=== PATIENT | female | born 1995 | race African-American/Black ===

== ENCOUNTER 2019-04-28 16:21 | Inpatient (IN) | payer OTHER ==
[~2019-04-28] VITALS: Ht 177.8 cm; Wt 79.6 kg
--- OUTSIDE RECORDS SUMMARY | 2019-04-28 16:23 | XMS REPORT ---
[facility] [place] Address Unknown Phone Unavailable Care Team Providers Care Senior Sql Developer Name Role Phone Unavailable Unavailable Payers Payer Name Policy Type Policy Number Effective Date Expiration Date Problems This patient has no known problems. Allergies, Adverse Reactions, Alerts Allergy Name Allergy Type Status Severity Reaction(s) Onset Date Inactive Date Treating Clinician Comments No Known Allergies DA Active U 2015-08-07 00:00:00 Medications This patient has no known medications. Results Test Description Test Time Test Comments Text Results Atomic Results Result Comments - XR CHEST 1 V 2019-04-28 11:46:00 Name: AYESHA RUSH [facility] : 1995 Age/S:23 /F [address] [facility] Unit#:[id number] Loc: [place] [address] Phys: Molly Rivera MD Dis Date: PHONE #: [phone] Status: REG ER FAX #: [phone] Exam Date: 04/28/2019 Reason: forceful vomiting EXAMS: CPT CODE: [id number] XR CHEST 1 V 46693 HISTORY: forceful vomiting TECHNIQUE: AP chest x-ray COMPARISON: 01/17/12 FINDINGS: No airspace consolidation or pleural effusion. Normal heart size. Mediastinal silhouette is unremarkable. Visualized osseous structures are grossly intact. IMPRESSION: No radiographic evidence of acute cardiopulmonary process. at 1146 Reported and signed by: Cherie Ledezma D.O. CC: Jamin Farias DO; Molly Rivera MD Technologist: Jannette Hester Trnscrpt Data: 04/28/2019 (4003) [id number] Orig Print D/T: S: 04/28/2019 (2348) PAGE 1 Signed Report COMPREHENSIVE METABOLIC PANEL 2019-04-28 10:54:00 SODIUM (test code=NA) 141 mmol/L 136-145 POTASSIUM (test code=K) 4.0 mmol/L 3.5-5.1 CHLORIDE (test code=CL) 105 mmol/L 101-109 CARBON DIOXIDE (test code=CO2) 28.3 mmol/L 21-32 ANION GAP (test code=GAP) 12 mmol/L 10-20 GLUCOSE (test code=GLU) 103 mg/dL 74-106 BLOOD UREA NITROGEN (test code=BUN) 7 mg/dL 3-21 CREATININE (test code=CREAT) 0.84 mg/dL 0.55-1.3 BUN/CREATININE RATIO (test code=BUN/CREA) 8.3 10-20 TOTAL PROTEIN (test code=PROT) 8.0 g/dL 6.5-8.4 ALBUMIN (test code=ALB) 4.2 g/dL 3.4-4.8 GLOBULIN (test code=GLOB) 3.8 G/DL 1-10 ALBUMIN/GLOBULIN RATIO (test code=A/G) 1.11 RATIO 0.75-1.50 CALCIUM (test code=CA) 8.5 mg/dL 8.4-10.2 BILIRUBIN TOTAL (test code=BILT) 0.20 mg/dL 0.0-1.0 SGOT/AST (test code=AST) 18 U/L 6-32 SGPT/ALT (test code=ALT) 21 U/L 12-78 Note: Change in REFERENCE RANGE due to new reagent method. ALKALINE PHOSPHATASE TOTAL (test code=ALKP) 65 U/L 38-126 [id number] 10:54:00* Test Item Value Reference Range Comments LIPASE (test code=LIP) 147 U/L 128-270 [id number] 10:54:00* Test Item Value Reference Range Comments MAGNESIUM (test code=MAG) 1.6 mg/dL 1.6-2.3 URINALYSIS [id number] 10:53:00* Test Item Value Reference Range Comments UA COLOR (test code=COLU) YELLOW YELLOW UA APPEARANCE (test code=APPU) HAZY CLEAR UA GLUCOSE DIPSTICK (test code=DGLUU) norm mg/dL NEGATIVE UA BILIRUBIN DIPSTICK (test code=BILU) NEGATIVE mg/dL NEGATIVE UA KETONE DIPSTICK (test code=KETU) neg mg/dL NEGATIVE UA SPECIFIC GRAVITY (test code=SGU) 1.010 1.001-1.035 UA BLOOD DIPSTICK (test code=CLINTON) neg Blake/uL NEGATIVE UA PH DIPSTICK (test code=RONDA) 7.0 5.0-8.0 UA PROTEIN DIPSTICK (test code=PROU) neg mg/dL Neg-15 UA UROBILINIOGEN DIPSTICK (test code=URO) norm mg/dL 0.0-0.2 UA NITRITE DIPSTICK (test code=MAR) NEGATIVE NEGATIVE UA LEUKOCYTE ESTERASE DIPSTICK (test code=LEUU) neg uL NEGATIVE UA WBC (test code=WBCU) 0-5 per HPF 0-5 UA RBC (test code=RBCU) 0-2 per HPF 0-5 UA EPITHELIAL CELLS (test code=EPIU) MODERATE per HPF Few UA BACTERIA (test code=BACU) FEW per HPF NONE UA MUCUS (test code=MUCU) FEW per LPF NONE-FEW Urine Source? Clean CatchUR HCG [id number] 10:53:00* Test Item Value Reference Range Comments UR HCG QUAL (test code=HCGQLU) NEGATIVE This HCGQL test is NOT applicable for MALE patients.Check with nurse about probable order error.If Tumor Marker Test needed, nurse should order test "HCGTU"(Test #550.17689) Urine Source? Clean CatchCOMPREHENSIVE METABOLIC [id number] 10:53:00* Test Item Value Reference Range Comments SODIUM (test code=NA) 141 mmol/L 136-145 POTASSIUM (test code=K) 4.0 mmol/L 3.5-5.1 CHLORIDE (test code=CL) 105 mmol/L 101-109 CARBON DIOXIDE (test code=CO2) 28.3 mmol/L 21-32 ANION GAP (test code=GAP) 12 mmol/L 10-20 GLUCOSE (test code=GLU) 103 mg/dL 74-106 BLOOD UREA NITROGEN (test code=BUN) 7 mg/dL 3-21 CREATININE (test code=CREAT) 0.84 mg/dL 0.55-1.3 BUN/CREATININE RATIO (test code=BUN/CREA) 8.3 10-20 TOTAL PROTEIN (test code=PROT) gram/dL 6.4-8.2 ALBUMIN (test code=ALB) g/dL 3.4-5.0 GLOBULIN (test code=GLOB) g/dL 2.7-4.2 ALBUMIN/GLOBULIN RATIO (test code=A/G) 0.75-1.50 CALCIUM (test code=CA) 8.5 mg/dL 8.4-10.2 BILIRUBIN TOTAL (test code=BILT) mg/dL 0.2-1.2 SGOT/AST (test code=AST) IUnit/L 15-37 SGPT/ALT (test code=ALT) U/L 10-69 ALKALINE PHOSPHATASE TOTAL (test code=ALKP) IUnit/L 45-117 [id number] 10:53:00* Test Item Value Reference Range Comments LIPASE (test code=LIP) Unit/L 144-286 [id number] 10:53:00* Test Item Value Reference Range Comments MAGNESIUM (test code=MAG) mg/dL 1.8-2.4 URINALYSIS [id number] 10:50:00* Test Item Value Reference Range Comments UA COLOR (test code=COLU) YELLOW YELLOW UA APPEARANCE (test code=APPU) CLEAR UA GLUCOSE DIPSTICK (test code=DGLUU) norm mg/dL NEGATIVE UA BILIRUBIN DIPSTICK (test code=BILU) NEGATIVE mg/dL NEGATIVE UA KETONE DIPSTICK (test code=KETU) neg mg/dL NEGATIVE UA SPECIFIC GRAVITY (test code=SGU) 1.010 1.001-1.035 UA BLOOD DIPSTICK (test code=CLINTON) neg Blake/uL NEGATIVE UA PH DIPSTICK (test code=RONDA) 7.0 5.0-8.0 UA PROTEIN DIPSTICK (test code=PROU) neg mg/dL Neg-15 UA UROBILINIOGEN DIPSTICK (test code=URO) norm mg/dL 0.0-0.2 UA NITRITE DIPSTICK (test code=MAR) NEGATIVE NEGATIVE UA LEUKOCYTE ESTERASE DIPSTICK (test code=LEUU) neg uL NEGATIVE UA WBC (test code=WBCU) per HPF 0-5 UA RBC (test code=RBCU) per HPF 0-5 UA EPITHELIAL CELLS (test code=EPIU) per HPF Few UA BACTERIA (test code=BACU) per HPF NONE Urine Source? Clean CatchUR HCG [id number] 10:50:00* Test Item Value Reference Range Comments UR HCG QUAL (test code=HCGQLU) NEGATIVE This HCGQL test is NOT applicable for MALE patients.Check with nurse about probable order error.If Tumor Marker Test needed, nurse should order test "HCGTU"(Test #550.53130) Urine Source? Clean CatchURINALYSIS [id number] 10:42:00* Test Item Value Reference Range Comments UA COLOR (test code=COLU) YELLOW YELLOW UA APPEARANCE (test code=APPU) CLEAR UA GLUCOSE DIPSTICK (test code=DGLUU) norm mg/dL NEGATIVE UA BILIRUBIN DIPSTICK (test code=BILU) NEGATIVE mg/dL NEGATIVE UA KETONE DIPSTICK (test code=KETU) neg mg/dL NEGATIVE UA SPECIFIC GRAVITY (test code=SGU) 1.010 1.001-1.035 UA BLOOD DIPSTICK (test code=CLINTON) neg Blake/uL NEGATIVE UA PH DIPSTICK (test code=RONDA) 7.0 5.0-8.0 UA PROTEIN DIPSTICK (test code=PROU) neg mg/dL Neg-15 UA UROBILINIOGEN DIPSTICK (test code=URO) norm mg/dL 0.0-0.2 UA NITRITE DIPSTICK (test code=MAR) NEGATIVE NEGATIVE UA LEUKOCYTE ESTERASE DIPSTICK (test code=LEUU) neg uL NEGATIVE UA WBC (test code=WBCU) per HPF 0-5 UA RBC (test code=RBCU) per HPF 0-5 UA EPITHELIAL CELLS (test code=EPIU) per HPF Few UA BACTERIA (test code=BACU) per HPF NONE Urine Source? Clean CatchUR HCG [id number] 10:42:00* Test Item Value Reference Range Comments UR HCG QUAL (test code=HCGQLU) Urine Source? Clean CatchCBC W/AUTO [id number] 10:41:00* Test Item Value Reference Range Comments WHITE BLOOD CELL (test code=WBC) 6.7 K/mm3 4.5-12.5 RED BLOOD CELL (test code=RBC) 4.35 mill/mm3 3.7-5.2 HEMOGLOBIN (test code=HGB) 13.0 gram/dL 11.5-15.5 HEMATOCRIT (test code=HCT) 41.1 % 36.0-46.0 MEAN CELL VOLUME (test code=MCV) 94.5 fL 80-98 MEAN CELL HGB (test code=MCH) 29.9 picogram 27.0-33.0 MEAN CELL HGB CONCETRATION (test code=MCHC) 31.6 gram/dL 33.0-36.0 RED CELL DISTRIBUTION WIDTH (test code=RDW) 11.8 % 11.6-16.2 RED CELL DISTRIBUTION WIDTH SD (test code=RDW-SD) 41.9 fL 37.0-51.0 PLATELET COUNT (test code=PLT) 232 K/mm3 150-450 MEAN PLATELET VOLUME (test code=MPV) 9.6 fL 6.7-11.0 NEUTROPHIL % (test code=NT%) 70.6 % 39.0-69.0 LYMPHOCYTE % (test code=LY%) 23.0 % 25.0-55.0 MONOCYTE % (test code=MO%) 5.5 % 0.0-10.0 EOSINOPHIL % (test code=EO%) 0.3 % 0.0-5.0 BASOPHIL % (test code=BA%) 0.3 % 0.0-1.0 NEUTROPHIL # (test code=NT#) 4.73 K/mm3 1.8-7.7 LYMPHOCYTE # (test code=LY#) 1.54 K/mm3 1.0-5.0 MONOCYTE # (test code=MO#) 0.37 K/mm3 0-0.8 EOSINOPHIL # (test code=EO#) 0.02 K/mm3 0.0-0.5 BASOPHIL # (test code=BA#) 0.02 K/mm3 0.0-0.2 MANUAL DIFF REQUIRED (test code=MDIFF) NO - CT ABD PELVIS W/O [id number] 15:04:00 Name: AYESHA RUSH [facility] : 1995 Age/S: 22 / F [address] [place] [address] Unit #: [id number] Loc: [place] [address] Phys: Arvind Blackburn MD Acct: [id number] Dis Date: Status: REG ER PHONE #: [phone] Exam Date: 09/22/2018 1432 FAX #: [phone] Reason: epigastric pain EXAMS: CPT CODE: [id number] CT ABD PELVIS W/O CONT [id number] REASON FOR EXAM: epigastric pain EXAM ORDER DATE: 09/22/2018 1:03 PM Ordering M.D.: Arvind Blackburn MD PROCEDURE: - CT ABD PELVIS W/O CONT axial CT images were acquired through the abdomen/pelvis at 5 mm intervals. Sagittal and coronal reformatted images were generated. Automated exposure control was utilized for this reduction. COMPARISON: Abdominal CT March 12, 2018 FINDINGS: The absence of IV contrast limits sensitivity of this exam for the detection of soft tissue pathology Visualized thorax: Normal Hepatobiliary: Normal Pancreas: Normal Spleen: Normal GI: There is fatty metaplasia of the submucosal layer of the entire colon. This may represent sequela from a prior inflammatory process. The appendix, small bowel, and stomach are within normal limits. Adrenal glands: Normal : Normal Normal caliber of the aorta and IVC. No calcified atherosclerosis Peritoneum and retroperitoneum: No free fluid or free air. There are a few subcentimeter mesenteric lymph nodes which are nonspecific and may be sequela from a prior infectious or inflammatory process. Musculoskeletal and abdominal wall: Normal IMPRESSION: PAGE 1 Signed Report (CONTINUED) [facility] 1995 Age/S: 22 / F [address] [place] [address] Unit #: [id number] Loc: [place] [address] Phys: Arvind Blackburn MD Acct: [id number] Dis Date: Status: REG ER PHONE #: [phone] Exam Date: 09/22/2018 1432 FAX #: [phone] Reason: epigastric pain EXAMS: CPT CODE: [id number] CT ABD PELVIS W/O CONT 32626 <Continued> No acute intra-abdominal process. Sequela of a prior inflammatory process involving the colon. at 1504 Reported and signed by: Fernando English MD CC: Arvind Blackburn MD Technologist:Ping Arora CTDI: DLP: Trnscb Date/Time: 09/22/2018 (5058) [id number] Orig Print D/T: S: 09/22/2018 (2830) CTDI: DLP: PAGE 2 Signed Report URINALYSIS [id number] 13:54:00* Test Item Value Reference Range Comments UA COLOR (test code=COLU) YELLOW YELLOW UA APPEARANCE (test code=APPU) HAZY CLEAR UA GLUCOSE DIPSTICK (test code=DGLUU) NORMAL mg/dL NEGATIVE UA BILIRUBIN DIPSTICK (test code=BILU) NEGATIVE mg/dL NEGATIVE UA KETONE DIPSTICK (test code=KETU) 150 (3+) mg/dL NEGATIVE UA SPECIFIC GRAVITY (test code=SGU) 1.015 1.001-1.035 UA BLOOD DIPSTICK (test code=CLINTON) 10 (Trace) Blake/uL NEGATIVE UA PH DIPSTICK (test code=RONDA) 6.0 5.0-8.0 UA PROTEIN DIPSTICK (test code=PROU) 30 (1+) mg/dL Neg-15 UA UROBILINIOGEN DIPSTICK (test code=URO) norm mg/dL 0.0-0.2 UA NITRITE DIPSTICK (test code=MAR) NEGATIVE NEGATIVE UA LEUKOCYTE ESTERASE DIPSTICK (test code=LEUU) 25 (Trace) uL NEGATIVE UA WBC (test code=WBCU) 0-5 per HPF 0-5 IN SOME URINARY TRACT INFECTIONS THERE MAY NOT BE ENOUGHWBCs IN THE URINE TO TRIGGER AN AUTOMATIC (REFLEX) URINECULTURE. A SEPERATE ORDER FOR URINE CULTURE IS RECOMMENDEDIF THERE IS STRONG SUPPORT FOR A URINARY TRACT INFECTIONCLINICALLY. UA RBC (test code=RBCU) 0-2 per HPF 0-5 UA EPITHELIAL CELLS (test code=EPIU) Many (>10/hpf) per HPF Few UA BACTERIA (test code=BACU) FEW per HPF NONE UA MUCUS (test code=MUCU) FEW per LPF NONE-FEW UA AMORPHOUS SEDIMENT (test code=AMORU) FEW per LPF NONE Urine Source? Clean CatchUR HCG [id number] 13:54:00* Test Item Value Reference Range Comments UR HCG QUAL (test code=HCGQLU) Urine Source? Clean CatchURINALYSIS [id number] 13:54:00* Test Item Value Reference Range Comments UA COLOR (test code=COLU) YELLOW YELLOW UA APPEARANCE (test code=APPU) HAZY CLEAR UA GLUCOSE DIPSTICK (test code=DGLUU) NORMAL mg/dL NEGATIVE UA BILIRUBIN DIPSTICK (test code=BILU) NEGATIVE mg/dL NEGATIVE UA KETONE DIPSTICK (test code=KETU) 150 (3+) mg/dL NEGATIVE UA SPECIFIC GRAVITY (test code=SGU) 1.015 1.001-1.035 UA BLOOD DIPSTICK (test code=CLINTON) 10 (Trace) Blake/uL NEGATIVE UA PH DIPSTICK (test code=RONDA) 6.0 5.0-8.0 UA PROTEIN DIPSTICK (test code=PROU) 30 (1+) mg/dL Neg-15 UA UROBILINIOGEN DIPSTICK (test code=URO) norm mg/dL 0.0-0.2 UA NITRITE DIPSTICK (test code=MAR) NEGATIVE NEGATIVE UA LEUKOCYTE ESTERASE DIPSTICK (test code=LEUU) 25 (Trace) uL NEGATIVE UA WBC (test code=WBCU) 0-5 per HPF 0-5 IN SOME URINARY TRACT INFECTIONS THERE MAY NOT BE ENOUGHWBCs IN THE URINE TO TRIGGER AN AUTOMATIC (REFLEX) URINECULTURE. A SEPERATE ORDER FOR URINE CULTURE IS RECOMMENDEDIF THERE IS STRONG SUPPORT FOR A URINARY TRACT INFECTIONCLINICALLY. UA RBC (test code=RBCU) 0-2 per HPF 0-5 UA EPITHELIAL CELLS (test code=EPIU) Many (>10/hpf) per HPF Few UA BACTERIA (test code=BACU) FEW per HPF NONE UA MUCUS (test code=MUCU) FEW per LPF NONE-FEW UA AMORPHOUS SEDIMENT (test code=AMORU) FEW per LPF NONE Urine Source? Clean CatchUR HCG [id number] 13:54:00* Test Item Value Reference Range Comments UR HCG QUAL (test code=HCGQLU) NEGATIVE This HCGQL test is NOT applicable for MALE patients.Check with nurse about probable order error.If Tumor Marker Test needed, nurse should order test "HCGTU"(Test #550.64961) Urine Source? Clean CatchURINALYSIS [id number] 13:42:00* Test Item Value Reference Range Comments UA COLOR (test code=COLU) YELLOW YELLOW UA APPEARANCE (test code=APPU) HAZY CLEAR UA GLUCOSE DIPSTICK (test code=DGLUU) NORMAL mg/dL NEGATIVE UA BILIRUBIN DIPSTICK (test code=BILU) NEGATIVE mg/dL NEGATIVE UA KETONE DIPSTICK (test code=KETU) 150 (3+) mg/dL NEGATIVE UA SPECIFIC GRAVITY (test code=SGU) 1.015 1.001-1.035 UA BLOOD DIPSTICK (test code=CLINTON) 10 (Trace) Blake/uL NEGATIVE UA PH DIPSTICK (test code=RONDA) 6.0 5.0-8.0 UA PROTEIN DIPSTICK (test code=PROU) 30 (1+) mg/dL Neg-15 UA UROBILINIOGEN DIPSTICK (test code=URO) norm mg/dL 0.0-0.2 UA NITRITE DIPSTICK (test code=MAR) NEGATIVE NEGATIVE UA LEUKOCYTE ESTERASE DIPSTICK (test code=LEUU) 25 (Trace) uL NEGATIVE UA WBC (test code=WBCU) per HPF 0-5 Urine Source? Clean CatchUR HCG [id number] 13:42:00* Test Item Value Reference Range Comments UR HCG QUAL (test code=HCGQLU) Urine Source? Clean [id number] 12:59:00* Test Item Value Reference Range Comments LIPASE (test code=LIP) 138 U/L 128-270 COMPREHENSIVE METABOLIC [id number] 11:29:00* Test Item Value Reference Range Comments SODIUM (test code=NA) 141 mmol/L 135-148 POTASSIUM (test code=K) 3.4 mmol/L 3.5-5.1 CHLORIDE (test code=CL) 104 mmol/L 101-109 CARBON DIOXIDE (test code=CO2) 24.5 mmol/L 21-32 ANION GAP (test code=GAP) 16 mmol/L 10-20 GLUCOSE (test code=GLU) 133 mg/dL 74-106 BLOOD UREA NITROGEN (test code=BUN) 7 mg/dL 3-21 CREATININE (test code=CREAT) 0.92 mg/dL 0.55-1.3 BUN/CREATININE RATIO (test code=BUN/CREA) 7.6 10-20 TOTAL PROTEIN (test code=PROT) 7.8 g/dL 6.5-8.4 ALBUMIN (test code=ALB) 4.2 g/dL 3.4-4.8 GLOBULIN (test code=GLOB) 3.6 G/DL 1-10 ALBUMIN/GLOBULIN RATIO (test code=A/G) 1.2 RATIO 0.75-1.50 CALCIUM (test code=CA) 9.0 mg/dL 8.4-10.2 BILIRUBIN TOTAL (test code=BILT) 0.30 mg/dL 0.0-1.0 SGOT/AST (test code=AST) 21 U/L 6-32 SGPT/ALT (test code=ALT) 25 U/L 12-78 Note: Change in REFERENCE RANGE due to new reagent method. ALKALINE PHOSPHATASE TOTAL (test code=ALKP) 63 U/L 38-126 CBC W/AUTO [id number] 11:10:00* Test Item Value Reference Range Comments WHITE BLOOD CELL (test code=WBC) 10.0 K/mm3 4.5-12.5 RED BLOOD CELL (test code=RBC) 4.19 mill/mm3 3.7-5.2 HEMOGLOBIN (test code=HGB) 13.1 gram/dL 11.5-15.5 HEMATOCRIT (test code=HCT) 38.5 % 36.0-46.0 MEAN CELL VOLUME (test code=MCV) 91.9 fL 80-98 MEAN CELL HGB (test code=MCH) 31.3 picogram 27.0-33.0 MEAN CELL HGB CONCETRATION (test code=MCHC) 34.0 gram/dL 33.0-36.0 RED CELL DISTRIBUTION WIDTH (test code=RDW) 12.2 % 11.6-16.2 RED CELL DISTRIBUTION WIDTH SD (test code=RDW-SD) 40.2 fL 39.1-52.0 PLATELET COUNT (test code=PLT) 211 K/mm3 150-450 MEAN PLATELET VOLUME (test code=MPV) 10.2 fL 6.7-11.0 NEUTROPHIL % (test code=NT%) 78.1 % 39.0-69.0 LYMPHOCYTE % (test code=LY%) 16.2 % 25.0-55.0 MONOCYTE % (test code=MO%) 5.5 % 0.0-10.0 EOSINOPHIL % (test code=EO%) 0.0 % 0.0-5.0 BASOPHIL % (test code=BA%) 0.2 % 0.0-1.0 NEUTROPHIL # (test code=NT#) 7.82 K/mm3 1.8-7.7 LYMPHOCYTE # (test code=LY#) 1.62 K/mm3 1.0-5.0 MONOCYTE # (test code=MO#) 0.55 K/mm3 0-0.8 EOSINOPHIL # (test code=EO#) 0.00 K/mm3 0.0-0.5 BASOPHIL # (test code=BA#) 0.02 K/mm3 0.0-0.2 MANUAL DIFF REQUIRED (test code=MDIFF) NO
[2019-04-28] MEDS ORDERED: SODIUM CHLORIDE 0.9% 1000ML 1,000 ML IV STA ×2 (16:53→18:42)
--- NOTE | 2019-04-28 17:10 | NUR ---
RADIOLOGY INFORMED TO CALL OUT STAVE CUTTER FOR GALLBLADDER ULTRASOUND.
[2019-04-28] MEDS ORDERED: FAMOTIDINE 20 MG/2 ML VIAL IV ONE (17:30)
[2019-04-28] MEDS ORDERED: MORPHINE SULFATE 2 MG/ML SYR 1ML IV ONE (17:30)
[2019-04-28] MEDS ORDERED: ONDANSETRON HCL INJ 2MG/ML 2ML 2 MG/ML VIAL IV ONE (17:30)
[2019-04-28 17:34] LABS: BASOPHILS % 0.2 % (0.0-1.0); HEMATOCRIT 34.8 % (34.2-44.1); HEMOGLOBIN 11.8 g/dL (12.0-16.0); LYMPHOCYTES # (AUTO) 0.8 (1.0-3.2); LYMPHOCYTES % 8.6 % (18.0-39.1); MEAN CORPUSCULAR HEMOGLOBIN 30.8 pg (28-32); MEAN CORPUSCULAR HGB CONC 33.9 g/dL (31-35); MEAN CORPUSCULAR VOLUME 90.9 fL (81-99); MONOCYTES # (AUTO) 0.2 (0.2-0.8); MONOCYTES % 2.4 % (4.4-11.3); NEUTROPHILS # (AUTO) 8.3 (2.1-6.9); NEUTROPHILS % 88.5 % (38.7-80.0); PLATELET COUNT 186 x10e3/uL (140-360); RED BLOOD COUNT 3.83 x10e6/uL (3.6-5.1); RED CELL DISTRIBUTION WIDTH 11.9 % (11.7-14.4)
[2019-04-28 17:52] LABS: ALANINE AMINOTRANSFERASE 14 IU/L (0-55); ALBUMIN 4.2 g/dL (3.5-5.0); ALBUMIN/GLOBULIN RATIO 1.3 (0.8-2.0); ALKALINE PHOSPHATASE 60 IU/L (40-150); AMYLASE 63 U/L (25-125); ANION GAP 16.8 mmol/L (8-16); BLOOD UREA NITROGEN 9 mg/dL (7-26); BUN/CREATININE RATIO 11 (6-25); CALCIUM 9.5 mg/dL (8.4-10.2); CARBON DIOXIDE 20 mmol/L (22-29); CHLORIDE 108 mmol/L (98-107); EST GLOMERULAR FILTRATION RATE > 60 ML/MIN (60-); GLUCOSE 113 mg/dL (74-118); LIPASE 12 U/L (8-78); POTASSIUM 3.8 mmol/L (3.5-5.1); SODIUM 141 mmol/L (136-145)
[2019-04-28 17:58] LABS: HCG,QUANTITATIVE < 1.20 mIU/mL (0-10)
[2019-04-28 17:59] LABS: BILIRUBIN,URINE NEGATIVE (NEGATIVE); CLARITY,URINE CLEAR (CLEAR); COLOR,URINE YELLOW (YELLOW); LEUKOCYTE ESTERASE ,URINE NEGATIVE (NEGATIVE); NITRITE,URINE NEGATIVE (NEGATIVE); PROTEIN,URINE DIPSTICK 2+ (NEGATIVE); URINE UROBILINOGEN 0.2 mg/dL (0.2 - 1)
[2019-04-28 18:00] LABS: KETONES,URINE 3+ (NEGATIVE)
[2019-04-28] MEDS ORDERED: IOPAMIDOL 370 MG/ML 200 ML INFUS..BTL INJ ONE (18:20)
[2019-04-28] MEDS ORDERED: SODIUM CHLORIDE 0.9% 50ML 50 ML ONE (18:20)
[2019-04-28 18:42] LABS: BACTERIA,URINE FEW /HPF; MUCUS,URINE MODERATE (RARE); RBC,URINE 0-5 /HPF (0-5)
[2019-04-28 18:43] LABS: EPITHELIAL CELLS,URINE MODERATE /LPF
--- NOTE | 2019-04-28 18:45 | Diagnostic Imaging Report ---
RIGHT UPPER QUADRANT ULTRASOUND TECHNIQUE: Ultrasound evaluation of the right upper quadrant abdomen. Color Doppler evaluation was utilized to supplement the evaluation. HISTORY: Abdominal pain COMPARISON: None available. DISCUSSION: LIVER: No focal lesion identified. The liver measures 14 cm in length in the right mid-clavicular line. BILIARY: Mild sludge. No gallbladder stone, wall thickening, or pericholecystic fluid. The sonographic Vargas's sign is reported as negative, but reportedly the patient was given pain medicine prior to the exam which makes the sonographic sign equivocal. Common bile duct measures 0.3 cm. RIGHT KIDNEY: 10 cm in length. No hydronephrosis, solid mass, or cystic lesion identified. Incidentally, a 2 cm simple appearing cyst near the superior pole. PANCREAS: Partially obscured by regional bowel gas, but no abnormality identified within this limitation. PERITONEUM: No free fluid. VASCULATURE: The visualized portions of the aorta and inferior vena cava appear unremarkable. The portal vein is patent with hepatopedal flow. IMPRESSION: 1. No acute sonographic abnormality. Specifically no gallstone, wall thickening or pericholecystic fluid. 2. Incidental simple right renal cyst. Signed by: Dr. Adam Smith D.O., M.M.M. on 04/28/2019 6:42 PM
--- NOTE | 2019-04-28 19:38 | Diagnostic Imaging Report ---
EXAMINATION: CT of the abdomen and pelvis with contrast. TECHNIQUE: Spiral CT images of the abdomen and pelvis were performed from the lung bases to the lesser trochanters after the intravenous administration of 100 cc Isovue-370. Coronal and sagittal reformatted images were obtained. COMPARISON: Abdominal ultrasound same day CLINICAL HISTORY:Epigastric pain DISCUSSION: ABDOMEN/PELVIS: LOWER THORAX:Unremarkable. HEPATOBILIARY: No focal hepatic lesions. No intra-or extrahepatic biliary ductal dilation. The gallbladder is normal. SPLEEN: No splenomegaly. PANCREAS: No focal masses or ductal dilatation. ADRENALS: No adrenal nodules. KIDNEYS/URETERS: No hydronephrosis, stones, or solid mass lesions. PELVIC ORGANS/BLADDER: Urinary bladder is unremarkable. Uterus is neutral in position and appears normal. No adnexal mass. PERITONEUM/RETROPERITONEUM: No ascites. No pneumoperitoneum. LYMPH NODES: No pelvic sidewall, retroperitoneal, or mesenteric lymphadenopathy VESSELS: Abdominal aorta, major branch vessels, and iliac arterial systems are well-visualized and patent. Portal vein, splenic vein, and central superior mesenteric vein are patent. GI TRACT: The large bowel is collapsed with mild wall thickening, mucosal enhancement, and subtle adjacent inflammation predominantly along the ascending colon (series 2 image 39). BONES AND SOFT TISSUE: No bony destructive lesions. No soft tissue abnormalities. IMPRESSION: Findings consistent with mild infectious or inflammatory colitis. No perforation or drainable fluid collection. Signed by: Dr. Mj Albarado M.D. on 04/28/2019 7:34 PM
[2019-04-28] MEDS ORDERED: PANTOPRAZOLE 40 MG 10ML VIAL IV STA (20:05)
[2019-04-28] MEDS ORDERED: METRONIDAZOLE 500MG/NS 100ML 100 ML IV SCH (20:15)
[2019-04-28] MEDS: ONDANSETRON HCL INJ 2MG/ML 2ML 2 MG/ML VIAL IV PRN (20:36)
[2019-04-28] MEDS: MORPHINE SULFATE INJ 4 MG/ML INJ 1ML IV PRN (20:38)
[2019-04-28] MEDS: SODIUM CHLORIDE 0.9% 1000ML 1,000 ML IV SCH (20:40)
[2019-04-28] MEDS: CEFTRIAXONE SOD 1 GM/NS 50 ML 50 ML IV SCH (20:40)
[2019-04-28 21:30] VITALS: BP 114/69
[2019-04-28] MEDS: METRONIDAZOLE 500MG/NS 100ML 100 ML IV SCH (21:58)
[2019-04-28 22:11] VITALS: BP 114/69
[2019-04-28 22:17] VITALS: BP 114/69
[2019-04-29] VITALS (8 sets, daily range): BP systolic 93–119; BP diastolic 54–83
[2019-04-29] MEDS: SODIUM CHLORIDE 0.9% 1000ML 1,000 ML IV SCH ×3 (04:05→18:57)
[2019-04-29] MEDS: METRONIDAZOLE 500MG/NS 100ML 100 ML IV SCH ×4 (04:15→23:19)
--- NOTE | 2019-04-29 04:23 | NUR ---
PT IS CRYING AND COMPLAINING OF ABD PAIN 06/06. SPOKE TO KEYON JONES NP AND HE ORDERED NORCO 10MG PO Q6H PRN AND FENTANYL PATCH 25MCG Q72 HR PRN. WILL CONTINUE TO MONITOR.
[2019-04-29 05:44] LABS: BASOPHILS % 0.2 % (0.0-1.0); HEMOGLOBIN 10.5 g/dL (12.0-16.0); LYMPHOCYTES # (AUTO) 2.3 (1.0-3.2); LYMPHOCYTES % 23.3 % (18.0-39.1); MEAN CORPUSCULAR HEMOGLOBIN 30.4 pg (28-32); MEAN CORPUSCULAR HGB CONC 32.8 g/dL (31-35); MEAN CORPUSCULAR VOLUME 92.8 fL (81-99); MONOCYTES # (AUTO) 0.7 (0.2-0.8); NEUTROPHILS # (AUTO) 6.8 (2.1-6.9); NEUTROPHILS % 68.9 % (38.7-80.0); PLATELET COUNT 168 x10e3/uL (140-360); RED BLOOD COUNT 3.45 x10e6/uL (3.6-5.1); RED CELL DISTRIBUTION WIDTH 12.3 % (11.7-14.4)
[2019-04-29 06:01] LABS: ALANINE AMINOTRANSFERASE 11 IU/L (0-55); ALBUMIN 3.3 g/dL (3.5-5.0); ALBUMIN/GLOBULIN RATIO 1.3 (0.8-2.0); ALKALINE PHOSPHATASE 45 IU/L (40-150); ANION GAP 10.5 mmol/L (8-16); BLOOD UREA NITROGEN 7 mg/dL (7-26); BUN/CREATININE RATIO 9 (6-25); CALCIUM 8.3 mg/dL (8.4-10.2); CARBON DIOXIDE 25 mmol/L (22-29); CHLORIDE 110 mmol/L (98-107); CREATININE, SERUM 0.76 mg/dL (0.57-1.11); EST GLOMERULAR FILTRATION RATE > 60 ML/MIN (60-); GLUCOSE 91 mg/dL (74-118); POTASSIUM 3.5 mmol/L (3.5-5.1); SODIUM 142 mmol/L (136-145)
--- NOTE | 2019-04-29 06:30 | NUR ---
Vitals rechecked Bp 110/73 mmhg, HR 72b/min.
--- NOTE | 2019-04-29 07:10 | NUR ---
PATIENT IS AWAKE, ALERT, AND IN STABLE CONDITION WITH NO S/S OF RESPIRATORY DISTRESS. NO PAIN VOICED. IV FLUIDS INFUSING. SISTER PRESENT IN ROOM. CALL LIGHT IS WITHIN REACH, PATIENT INSTRUCTED TO CALL FOR ASSISTANCE NEEDED.
--- NOTE | 2019-04-29 10:46 | Pre Op History & Physical ---
CHIEF COMPLAINT: Nausea and vomiting. She also has abdominal pain. PRIMARY CARE PHYSICIAN: Jamin Farias DO. HISTORY OF PRESENT ILLNESS: The patient is a 23-year-old woman. She has a history of some gastrointestinal problems in the past, that resolved when she stopped drinking. Yesterday, she noticed recurrence of her symptoms. She had the abrupt onset of nausea and vomiting. She had some abdominal pain. She denied any diarrhea. She went to the [facility] [place]. She was sent home, but still felt ill and returned to our emergency department. She subsequently received IV fluids and pain medications. She feels better. She is not having any nausea or vomiting, and is now eager to go home. PAST MEDICAL HISTORY: 1. Vague history of gastrointestinal problems in the past. She has never seen a electric engine mechanic. She has never had any official diagnosis. 2. No history of diabetes or hypertension. PAST SURGICAL HISTORY: No prior surgeries. SOCIAL HISTORY: The patient was drinking last year, but has not been drinking recently. She is not an active smoker. ALLERGIES: NO KNOWN DRUG ALLERGIES. FAMILY HISTORY: Noncontributory. REVIEW OF SYSTEMS: The patient is afebrile. She has no headache. She is not having any neck pain. She denies chest pain. She has no difficulty breathing. She did have abdominal pain last night, but this has resolved. She had nausea and vomiting yesterday, but has resolved. She has no leg edema. PHYSICAL EXAMINATION: VITAL SIGNS: The blood pressure is 102/55 and the saturation is 98%. The pulse is 67 and the respiratory rate is normal. HEENT: Shows no facial swelling or erythema. LYMPHATIC: Shows no submandibular, cervical, or supraclavicular adenopathy. CARDIAC: Reveals regular rate and rhythm with normal S1 and S2. LUNGS: Auscultation of lungs shows clear breath sounds bilaterally. There is no wheezing. ABDOMEN: Soft, nontender. There is no rebound or guarding. EXTREMITIES: Show no leg edema or calf tenderness. There is no cyanosis or clubbing. SKIN: Shows no rashes. NEUROLOGICAL: Shows no focal abnormalities. LABORATORY DATA: The white blood cell count is 9.8 and hemoglobin is 10.5. The platelet count is 168. The BUN to creatinine ratio is 7 to 0.76. The other electrolytes are within normal limits. Urinalysis shows an elevated specific gravity and some ketones. RADIOGRAPHIC DATA: CT scan of the abdomen and pelvis shows findings consistent with mild colitis. Abdominal ultrasound shows no acute disease. IMPRESSION: 1. Acute gastroenteritis with nausea and vomiting. 2. Dehydration, that has resolved. PLAN: 1. The patient will be discharged home. 2. She will follow up with electric engine mechanic as well as with her primary doctor. MD MONICA Chand/EDILBERTO /[id number]
--- NOTE | 2019-04-29 19:25 | NUR ---
PATIENT IN STABLE CONDITION WITH NO S/S OF RESPIRATORY DISTRESS. NO PAIN VOICED. IV FLUIDS INFUSING. SISTER PRESENT IN ROOM. CALL LIGHT IS WITHIN REACH, PATIENT INSTRUCTED TO CALL FOR ASSISTANCE NEEDED. BEDSIDE REPORT GIVEN TO ONCOMING NURSE.
--- NOTE | 2019-04-29 19:33 | NUR ---
PT IS RESTING IN BED. RESPIRATION IS EVEN AND UNLABORED, NO DISTRESS NOTED. BED IN THE LOWEST POSITION, LOCKED, AND CALL LIGHT WITHIN REACH. WILL CONTINUE TO MONITOR.
--- NOTE | 2019-04-29 20:57 | NUR ---
PT IS COMPLAINING THAT HER HEAD HURTS. SPOKE TO DR JUSTIN JONES AND HE ORDERED FIORICET 1 TAB Q6H PO PRN AND TYLENOL 650MG PO Q6H PRN. WILL CONTINUE TO MONITOR.
[2019-04-29] MEDS ORDERED: ACETAMIN/BUTALBITAL/CAFFEINE TAB PO PRN (21:00)
[2019-04-29] MEDS: CEFTRIAXONE SOD 1 GM/NS 50 ML 50 ML IV SCH (21:07)
[2019-04-29] MEDS: ACETAMINOPHEN 325 MG TAB PO PRN (21:24)
[2019-04-30] VITALS (7 sets, daily range): BP systolic 103–139; BP diastolic 61–85
[2019-04-30] MEDS: MORPHINE SULFATE INJ 4 MG/ML INJ 1ML IV PRN (02:52)
[2019-04-30] MEDS: ONDANSETRON HCL INJ 2MG/ML 2ML 2 MG/ML VIAL IV PRN (02:53)
--- NOTE | 2019-04-30 04:23 | NUR ---
PT STILL CRYING AND HAVING PAIN 06/06. SPOKE TO KEYON JONES CIRCUIT BREAKER MECHANIC AND PER HUGE NORCO 10MG PO Q6H PRN AND FENTANYL PATCH 25MCG Q72 PRN. WILL CONTINUE TO MONITOR.
[2019-04-30] MEDS: METRONIDAZOLE 500MG/NS 100ML 100 ML IV SCH ×4 (04:29→22:02)
[2019-04-30] MEDS ORDERED: FENTANYL 25 MCG/HR PATCH TOP PRN (04:30)
--- NOTE | 2019-04-30 06:39 | NUR ---
SPOKE TO DR SABILLON IN REGARD TO PT SEVERE ABD PAIN AND NO ABD SOUND WITH AUSCULTATION. PER DR SABILLON STAT HIDA SCAN WITH EJECTION FRACTION. CALL ATTENDING AND SEE IF THEY WANT SURGERY ON BOARD. WILL CONTINUE TO MONITOR.
--- NOTE | 2019-04-30 06:59 | NUR ---
SPOKE TO KEYON KAREN RADIO COMMENTATOR IN REGARD TO CONSULTING SURGERY PER DR SABILLON. PER [facility] CONSULT DR TORRES. WILL CONTINUE TO MONITOR.
--- NOTE | 2019-04-30 07:10 | NUR ---
PATIENT IS IN STABLE CONDITION WITH NO S/S OF RESPIRATORY DISTRESS. PATIENT IS CRYING AND IN PAIN 10/10 DUR TO ABD PAIN. PATIENT UNABLE TO RECEIVE PAIN MEDICATION DUE TO STAT HIDA SCAN. IV FLUIDS INFUSING. CALL LIGHT IS WITHIN REACH, PATIENT INSTRUCTED TO CALL FOR ASSISTANCE NEEDED.
[2019-04-30] MEDS: ACETAMINOPHEN 325 MG TAB PO PRN ×2 (08:56→18:01)
[2019-04-30] MEDS: SODIUM CHLORIDE 0.9% 1000ML 1,000 ML IV SCH ×4 (09:19→22:36)
--- NOTE | 2019-04-30 10:42 | NUR ---
PATIENT OFF THE UNIT TO NUCLEAR MEDICINE IN WHEELCHAIR- PATIENT IN STABLE CONDITION WITH NO S/S OF RESPIRATORY DISTRESS.
--- NOTE | 2019-04-30 12:44 | NUR ---
PATIENT BACK ON THE UNIT- PATIENT IN STABLE CONDITION WITH NO S/S OF RESPIRATORY DISTRESS. SISTER PRESENT IN ROOM. CALL LIGHT IS WITHIN REACH, PATIENT INSTRUCTED TO CALL FOR ASSISTANCE NEEDED.
--- NOTE | 2019-04-30 14:49 | NUR ---
SPOKE WITH DR. TORRES REGARDING PATIENT DIET. DR. TORRES STATED PATIENT CAN HAVE FULL LIQUID DIET.
--- NOTE | 2019-04-30 15:05 | NUR ---
Visit made by the Spiritual Care Department Pastoral Visitor, Nadira Beebe. PV provided pastoral presence, prayer, hospitality, and supportive listening. Pastoral Visitor informed pt/family of the scope of [employer] and availability. KAILYN GONZALES Construction Driller Spiritual Care Department O: [phone] Pager: [phone] ([phone] number calling from)
--- NOTE | 2019-04-30 15:30 | Diagnostic Imaging Report ---
Hepatobiliary Scan with Gallbladder Ejection Fraction Clinical information: Colitis, dehydration. Abdominal pain with nausea/vomiting x 3 days Technique: Following intravenous administration of 6.6 millicuries of Tc-99m mebrofenin, dynamic images of the abdomen in the anterior projection were obtained through 60 minutes. Sincalide (CCK analog) 1.6 micrograms was administered intravenously over 30 minutes with additional imaging for determination of gallbladder ejection fraction. Discussion: Perfusion of the liver is normal. Extraction of tracer by the liver parenchyma is normal. Tracer appears promptly within the biliary tract. The gallbladder begins to fill at 5 minutes post injection of tracer and fills adequately. Tracer is seen in the small bowel by 17 minutes. There is no contractile response by the gallbladder to the pharmacologic dose of sincalide. No emptying of the gallbladder occurs during the 30 minute infusion. Impression: 1. Filling of the gallbladder excludes acute cystic duct obstruction/acute cholecystitis. 2. The gallbladder ejection fraction is undefined as there is no emptying of the gallbladder during the infusion of sincalide. This absence of a contractile response to sincalide supports the clinical diagnosis of chronic cholecystitis/gallbladder dyskinesia. Signed by: Dr. Maria L Trivedi M.D. on 04/30/2019 3:27 PM
--- NOTE | 2019-04-30 18:26 | NUR ---
CALL PLACED OUT TO DR. TORRES REGARDING HIDA SCAN RESULTS- AWAITING CALLBACK.
--- NOTE | 2019-04-30 18:54 | Consultation ---
DATE OF CONSULTATION: 04/30/2019 CHIEF COMPLAINT: Intractable vomiting. HISTORY OF PRESENT ILLNESS: This patient is a 23-year-old female with recurrent epigastric discomfort with nausea and vomiting for many months. The patient states the vomiting seemed to be worse when she was drinking. The patient has been free from alcohol, was readmitted approximately 4 days ago with recurrent nausea and vomiting with some diarrhea. She denies fever or chills. She has no history of diabetes. PAST SURGICAL HISTORY: Negative. ALLERGIES: SHE HAS NO DRUG ALLERGIES. SOCIAL HABITS: The patient admitted to drinking beers only occasionally now, but had been more frequent in the past. No cigarette smoking or drug use. REVIEW OF SYSTEMS: No chest pain, shortness of breath, or cough. PHYSICAL EXAMINATION: VITAL SIGNS: Stable. Afebrile. GENERAL: She is awake, alert, in hqye-ff-ihwfhlwh discomfort. HEENT: Sclerae nonicteric. NECK: Supple. LUNGS: Clear. HEART: Regular rate and rhythm. ABDOMEN: Soft. There is mild guarding in the periumbilical area without any rebound tenderness. EXTREMITIES: Without cyanosis or edema. LABORATORY DATA: The patient white cell count is 9, hemoglobin of 11, creatinine of 0.8, and liver function tests unremarkable. Lipase was 12. A CT of the abdomen show evidence of mild colitis involving the ascending colon. ASSESSMENT: Intractable nausea and vomiting. The patient is with history of alcohol use. Mild ascending colitis on CT. Planned followup HIDA scan result. We will follow the patient with you. MD ANGELO Guallpa/MODL /[id number]
--- NOTE | 2019-04-30 18:59 | NUR ---
RECEIVED A CALL FROM DR. TORRES- DR. TORRES INFORMED OF HIDA SCAN RESULTS AND PATIENT RESUMING FULL LIQUID DIET. NO NEW ORDERS GIVEN.
--- NOTE | 2019-04-30 19:15 | NUR ---
PATIENT IN STABLE CONDITION WITH NO S/S OF RESPIRATORY DISTRESS. NO ABD PAIN VOICED AT THIS TIME; PATIENT RECENTLY RECEIVED TYLENOL FOR A HEADACHE PAIN. IV FLUIDS INFUSING. FAMILY MEMBERS PRESENT IN ROOM. CALL LIGHT IS WITHIN REACH, PATIENT INSTRUCTED TO CALL FOR ASSISTANCE NEEDED. BEDSIDE REPORT GIVEN TO ONCOMING NURSE.
--- NOTE | 2019-04-30 19:28 | NUR ---
PT IS RESTING IN BED WITH FAMILY AT BEDSIDE. RESPIRATION IS EVEN AND UNLABORED, NO DISTRESS NOTED. BED IN THE LOWEST POSITION, LOCKED, AND CALL LIGHT WITHIN REACH. WILL CONTINUE TO MONITOR.
[2019-04-30] MEDS: CEFTRIAXONE SOD 1 GM/NS 50 ML 50 ML IV SCH (20:57)
[2019-05-01] VITALS (7 sets, daily range): BP systolic 102–135; BP diastolic 59–89
[2019-05-01 03:56] LABS: BASOPHILS % 0.4 % (0.0-1.0); EOSINOPHILS % 0.1 % (0.0-6.0); HEMATOCRIT 31.6 % (34.2-44.1); HEMOGLOBIN 10.6 g/dL (12.0-16.0); LYMPHOCYTES # (AUTO) 3.1 (1.0-3.2); LYMPHOCYTES % 38.2 % (18.0-39.1); MEAN CORPUSCULAR HEMOGLOBIN 30.5 pg (28-32); MEAN CORPUSCULAR HGB CONC 33.5 g/dL (31-35); MEAN CORPUSCULAR VOLUME 90.8 fL (81-99); MONOCYTES # (AUTO) 0.6 (0.2-0.8); MONOCYTES % 7.4 % (4.4-11.3); NEUTROPHILS # (AUTO) 4.4 (2.1-6.9); NEUTROPHILS % 53.5 % (38.7-80.0); PLATELET COUNT 158 x10e3/uL (140-360); RED BLOOD COUNT 3.48 x10e6/uL (3.6-5.1); RED CELL DISTRIBUTION WIDTH 11.9 % (11.7-14.4)
[2019-05-01] MEDS: METRONIDAZOLE 500MG/NS 100ML 100 ML IV SCH ×4 (04:02→21:14)
[2019-05-01 04:20] LABS: ANION GAP 12.9 mmol/L (8-16); BLOOD UREA NITROGEN 7 mg/dL (7-26); BUN/CREATININE RATIO 10 (6-25); CALCIUM 8.1 mg/dL (8.4-10.2); CARBON DIOXIDE 24 mmol/L (22-29); CHLORIDE 102 mmol/L (98-107); CREATININE, SERUM 0.71 mg/dL (0.57-1.11); EST GLOMERULAR FILTRATION RATE > 60 ML/MIN (60-); GLUCOSE 79 mg/dL (74-118); MAGNESIUM 1.6 MG/DL (1.3-2.1); PHOSPHORUS 2.6 MG/DL (2.3-4.7); SODIUM 136 mmol/L (136-145)
[2019-05-01 04:23] LABS: POTASSIUM 2.9 mmol/L (3.5-5.1)
--- NOTE | 2019-05-01 04:28 | NUR ---
LAB CALLED WITH A POTASSIUM OF 2.9. SPOKE TO MARIBETH CAMARGO NP AND SHE ORDERED POTASSIUM 20MEQ IV TIMES TWO. WILL CONTINUE TO MONITOR.
[2019-05-01] MEDS: POTASSIUM CHLORIDE 20MEQ/100ML 200 ML IV SCH ×2 (05:12→08:17)
--- NOTE | 2019-05-01 08:09 | NUR ---
Patient alert and responsive, no resp distress and will monitor, report per out going nurse to infuse 20 meqx2 bags and finished at this time, will monitor.
[2019-05-01] MEDS: FAMOTIDINE 20 MG/2 ML VIAL IV SCH ×2 (08:17→17:26)
[2019-05-01] MEDS: SODIUM CHLORIDE 0.9% 1000ML 1,000 ML IV SCH ×3 (08:17→20:05)
[2019-05-01] MEDS: ONDANSETRON HCL INJ 2MG/ML 2ML 2 MG/ML VIAL IV PRN (13:22)
[2019-05-01] MEDS: HYDROCODONE/APAP 10MG-325MG TAB PO PRN ×2 (13:22→17:26)
[2019-05-01] MEDS: MORPHINE SULFATE INJ 4 MG/ML INJ 1ML IV PRN ×2 (13:22→19:19)
--- NOTE | 2019-05-01 13:50 | NUR ---
CALL RECEIVED FROM [employer] ELECTRICAL PROSPECTING OBSERVER; ARIANE RIVERA CONTACT # [phone]. STATES IF PT NEEDS HH; TUNDE AND RADHA JARQUIN ARE IN NETWORK WITH HER [facility]. NO DC NEEDS AT THIS TIME.
--- NOTE | 2019-05-01 16:50 | NUR ---
Patient completed procedure and orders for full liquid diet but Dr. Baig plans on completing a Lab Dayana tomorrow and orders for NPO after midnight but will see patient tonight before putting orders in place for procedure.
[2019-05-01] MEDS ORDERED: PROPOFOL IV EMULSION 10 MG/ML 50 ML VIAL ONE (17:46)
[2019-05-01] MEDS ORDERED: KETAMINE HCL INJ 50 MG/ML 10 ML VIAL ONE (18:28)
[2019-05-01] MEDS ORDERED: FENTANYL CITRATE/PF 100MCG/2 ML INJ ONE (18:28)
[2019-05-01] MEDS ORDERED: MIDAZOLAM HCL 2 MG/2 ML VIAL ONE (18:28)
--- NOTE | 2019-05-01 19:35 | NUR ---
Received change of shift report from AM nurse. Walking rounds completed.
[2019-05-01] MEDS: CEFTRIAXONE SOD 1 GM/NS 50 ML 50 ML IV SCH (20:02)
--- NOTE | 2019-05-01 22:12 | NUR ---
Patient AAOx3. Family at bedside. Patient received pain med by AM nurse. Patient states pain was =4 before meds. Pain at a1 at this time. Continue monitor pain level. Dr Baig on floor to see patient. Patient to have procedure tomorrow. Called Dr Baig to let him know patient agree to do procedure tomorrow. Consent will be completed by AM.
--- NOTE | 2019-05-01 23:11 | Operative Report ---
DATE OF PROCEDURE: 05/01/2019 SURGEON: Freddy Arambula MD PROCEDURE: EGD with biopsy. INDICATIONS FOR EGD: Upper abdominal pain, nausea, and vomiting. MEDICATIONS: The patient was done under MAC, please see anesthesiologist's note. PROCEDURE IN DETAIL: With the patient in left lateral decubitus position, a flexible fiberoptic Olympus gastroscope was introduced into the esophagus under direct visualization without any difficulty. There were some patchy erythema noted in the distal esophagus. The scope was then advanced with ease into the stomach. Mucosa overlying the antrum and the body revealed some patchy erythema and low-grade edema and biopsies were obtained and sent to stain for H pylori. Pylorus was of normal contour and shape, it was intubated with ease and the scope was advanced all the way to the second portion of the duodenum. The scope was then withdrawn slowly. Mucosa overlying the proximal second portion appeared to be within normal limits. There were some patchy erythema noted in the duodenal bulb. The scope was then withdrawn back into the stomach and retroflexed, and mucosa overlying the fundus and cardia appeared to be within normal limits. The scope was then straightened out, it was subsequently withdrawn. The patient tolerated the procedure well. IMPRESSION: 1. Distal esophagitis. 2. Gastritis, biopsied. Biopsies sent to stain for Helicobacter pylori. 3. Duodenitis, bulb, mild. PLAN: Follow up histology. Continue current therapy. Findings do not necessarily explain the severity or the duration of the patient's upper abdominal pain. We will discuss with Dr. Baig. Freddy Arambula MD [facility] [place] /[id number] cc: Harry Hanna MD
[2019-05-02] VITALS (9 sets, daily range): BP systolic 107–140; BP diastolic 61–93
--- NOTE | 2019-05-02 03:00 | NUR ---
Pain meds given as requested. Patient resting quitly at this time. Continue monitor.
[2019-05-02] MEDS: METRONIDAZOLE 500MG/NS 100ML 100 ML IV SCH ×4 (03:11→21:23)
[2019-05-02 03:59] LABS: BASOPHILS % 0.4 % (0.0-1.0); EOSINOPHILS % 0.3 % (0.0-6.0); HEMATOCRIT 35.8 % (34.2-44.1); HEMOGLOBIN 12.3 g/dL (12.0-16.0); LYMPHOCYTES # (AUTO) 2.4 (1.0-3.2); LYMPHOCYTES % 30.5 % (18.0-39.1); MEAN CORPUSCULAR HEMOGLOBIN 30.7 pg (28-32); MEAN CORPUSCULAR HGB CONC 34.4 g/dL (31-35); MEAN CORPUSCULAR VOLUME 89.3 fL (81-99); MONOCYTES # (AUTO) 0.6 (0.2-0.8); MONOCYTES % 7.7 % (4.4-11.3); NEUTROPHILS # (AUTO) 4.7 (2.1-6.9); NEUTROPHILS % 60.7 % (38.7-80.0); PLATELET COUNT 181 x10e3/uL (140-360); RED BLOOD COUNT 4.01 x10e6/uL (3.6-5.1); RED CELL DISTRIBUTION WIDTH 11.5 % (11.7-14.4)
[2019-05-02] MEDS: ACETAMINOPHEN 325 MG TAB PO PRN ×2 (04:00→04:01)
[2019-05-02 04:16] LABS: ANION GAP 15.5 mmol/L (8-16); BLOOD UREA NITROGEN 6 mg/dL (7-26); BUN/CREATININE RATIO 8 (6-25); CALCIUM 8.8 mg/dL (8.4-10.2); CARBON DIOXIDE 24 mmol/L (22-29); CHLORIDE 102 mmol/L (98-107); CREATININE, SERUM 0.74 mg/dL (0.57-1.11); EST GLOMERULAR FILTRATION RATE > 60 ML/MIN (60-); GLUCOSE 70 mg/dL (74-118); MAGNESIUM 1.7 MG/DL (1.3-2.1); POTASSIUM 3.5 mmol/L (3.5-5.1); SODIUM 138 mmol/L (136-145)
[2019-05-02] MEDS: MORPHINE SULFATE INJ 4 MG/ML INJ 1ML IV PRN ×3 (06:40→22:51)
[2019-05-02] MEDS: ONDANSETRON HCL INJ 2MG/ML 2ML 2 MG/ML VIAL IV PRN ×3 (06:40→22:51)
--- NOTE | 2019-05-02 06:55 | NUR ---
Nurse pract. in to see patient. Check for new orders.
--- NOTE | 2019-05-02 07:15 | NUR ---
PATIENT IN BED RESTING WITH NO RESPIRATORY DISTRESS. IV FLUID INFUSING ORDERED. BED IN LOWER POSITION, CALL LIGHT AT REACH.
[2019-05-02] MEDS: FAMOTIDINE 20 MG/2 ML VIAL IV SCH ×2 (08:52→16:47)
[2019-05-02] MEDS: SODIUM CHLORIDE 0.9% 1000ML 1,000 ML IV SCH ×2 (08:52→20:05)
--- NOTE | 2019-05-02 11:30 | NUR ---
PATIENT OFF UNIT TO OR.
[2019-05-02] MEDS ORDERED: BUPIVACAINE 0.5%/EPI 30 ML SDV INJ ONE (12:07)
[2019-05-02] MEDS ORDERED: BUPIVACAINE 0.25%/EPI 30ML SDV INJ ONE (12:07)
[2019-05-02] MEDS ORDERED: MORPHINE SULFATE 2 MG/ML SYR 1ML ONE ×2 (13:38→13:46)
--- NOTE | 2019-05-02 13:50 | NUR ---
PATIENT BACK TO UNIT FROM RADIOLOGY. REPORT RECEIVED FROM WILLARD DELACRUZ. PATIENT HAD A LAPAROSCOPIC CHOLECYSTECTOMY. 4 TROCAR SITES TO ABDOMEN WITH DERMABOND, DRY AND INTACT. REQUESTED AND RECEIVED A CUP OF ICE WATER. V/S [id number]/93 AND 97% ON RA.
--- NOTE | 2019-05-02 16:31 | Operative Report ---
DATE OF PROCEDURE: 05/02/2019 SURGEON: Mj Baig MD PREOPERATIVE DIAGNOSIS: Biliary dyskinesia. POSTOPERATIVE DIAGNOSES: Biliary dyskinesia and cholecystitis. OPERATIVE PROCEDURE: Laparoscopic cholecystectomy. ANESTHESIA: General. INDICATION: A 23-year-old female with recurrent epigastric pain, vomiting with HIDA scan showing nonemptying of the gallbladder with stimulants. The patient was diagnosed as biliary dyskinesia and consented for laparoscopic cholecystectomy. Attendant risks discussed. PROCEDURE FINDINGS: Chronic cholecystitis. DESCRIPTION OF PROCEDURE: The patient brought to the OR intubated. The abdomen prepped and draped in sterile fashion. An infraumbilical incision is made and a 10 mm port inserted. Insufflation began under direct vision. Other port site placed in the midepigastric and right upper quadrant. Gallbladder fundus was retracted in cephalad direction. Next, the gallbladder retracted laterally with blunt and sharp dissection, cystic artery was isolated, triple clipped and divided. Cystic duct was then isolated in junction with the common bile duct was noted before triple clipping the cystic duct 1 cm away from the junction and divided cystic duct between clips. The gallbladder then detached from the liver with cautery and taken out through the umbilical port site. Operative field was irrigated. Hemostasis achieved. All ports removed under direct vision. Fascial closure with 0 Vicryl. Skin was closed with subcuticular stitch. The patient was extubated and transported to recovery room. ESTIMATED BLOOD LOSS: 4 mL. Mj Baig MD DNL/MODL /[id number]
[2019-05-02] MEDS ORDERED: LIDOCAINE HCL 2% LOCAL INJ 5 ML SDV VIAL INJ ONE (17:57)
[2019-05-02] MEDS ORDERED: GLYCOPYRROLATE INJ 1MG/ 5 ML SYR ONE (17:57)
[2019-05-02] MEDS ORDERED: ACETAMINOPHEN 1000 MG/100 ML IV ONE (17:57)
[2019-05-02] MEDS ORDERED: NEOSTIGMINE 5 MG/5ML SYR ONE (17:57)
[2019-05-02] MEDS ORDERED: ONDANSETRON HCL INJ 2MG/ML 2ML 2 MG/ML VIAL ONE (17:57)
[2019-05-02] MEDS ORDERED: ROCURONIUM BROMIDE 10 MG/ML 5ML VIAL ONE (17:57)
[2019-05-02] MEDS ORDERED: SEVOFLURANE INHAL SOLN 250 ML PEN BTL ONE (17:57)
[2019-05-02] MEDS ORDERED: DEXAMETHASONE SOD PHOS INJ 4 MG/ML VIAL ONE (17:57)
[2019-05-02] MEDS ORDERED: KETOROLAC TROMETHAMINE 30 MG/ML VIAL ONE (17:57)
[2019-05-02] MEDS ORDERED: CEFAZOLIN SOD 1 GM VIAL ONE (17:57)
[2019-05-02] MEDS ORDERED: PROPOFOL IV EMULSION 10 MG/ML 20 ML VIAL ONE (17:57)
[2019-05-02] MEDS ORDERED: MIDAZOLAM HCL 2 MG/2 ML VIAL ONE (18:38)
[2019-05-02] MEDS ORDERED: FENTANYL CITRATE/PF 100MCG/2 ML INJ ONE (18:38)
--- NOTE | 2019-05-02 19:25 | NUR ---
Received change of shift report from AM nurse. Walking rounds completed. Patient up sitting in bed. Asking for pain meds. Will medicate as Dr orders. Continue monitor.
[2019-05-02] MEDS: CEFTRIAXONE SOD 1 GM/NS 50 ML 50 ML IV SCH (20:15)
--- NOTE | 2019-05-02 23:04 | NUR ---
Patient request pain meds pain =6. Meds given as ordered by MD.
--- NOTE | 2019-05-03 00:44 | NUR ---
Dr Arambula on the floor to see patient. Will f/u on any new orders.
[2019-05-03] MEDS: SODIUM CHLORIDE 0.9% 1000ML 1,000 ML IV SCH ×4 (02:34→20:38)
[2019-05-03 03:30] VITALS: BP 126/77
[2019-05-03] MEDS: METRONIDAZOLE 500MG/NS 100ML 100 ML IV SCH ×4 (04:00→22:45)
--- NOTE | 2019-05-03 04:03 | NUR ---
No changes noted in patient condition. Resting quitly at this time. Continue monitor.
[2019-05-03 06:11] LABS: BASOPHILS % 0.1 % (0.0-1.0); HEMATOCRIT 34.1 % (34.2-44.1); HEMOGLOBIN 11.6 g/dL (12.0-16.0); LYMPHOCYTES # (AUTO) 1.5 (1.0-3.2); LYMPHOCYTES % 15.7 % (18.0-39.1); MEAN CORPUSCULAR HEMOGLOBIN 30.4 pg (28-32); MEAN CORPUSCULAR VOLUME 89.3 fL (81-99); MONOCYTES # (AUTO) 0.7 (0.2-0.8); NEUTROPHILS # (AUTO) 7.2 (2.1-6.9); NEUTROPHILS % 76.9 % (38.7-80.0); PLATELET COUNT 192 x10e3/uL (140-360); RED BLOOD COUNT 3.82 x10e6/uL (3.6-5.1); RED CELL DISTRIBUTION WIDTH 11.5 % (11.7-14.4)
[2019-05-03] MEDS: MORPHINE SULFATE INJ 4 MG/ML INJ 1ML IV PRN ×3 (06:28→18:44)
[2019-05-03] MEDS ORDERED: TYLENOL WITH C1 EACH PO (06:29)
[2019-05-03] MEDS: ONDANSETRON HCL INJ 2MG/ML 2ML 2 MG/ML VIAL IV PRN ×3 (06:29→18:44)
[2019-05-03] MEDS ORDERED: CEFDINIR300 MG PO (06:29)
[2019-05-03] MEDS ORDERED: METRONIDAZOLE500 MG PO (06:29)
[2019-05-03 06:32] LABS: ANION GAP 10.7 mmol/L (8-16); BLOOD UREA NITROGEN 7 mg/dL (7-26); BUN/CREATININE RATIO 9 (6-25); CALCIUM 8.7 mg/dL (8.4-10.2); CARBON DIOXIDE 22 mmol/L (22-29); CHLORIDE 106 mmol/L (98-107); CREATININE, SERUM 0.74 mg/dL (0.57-1.11); EST GLOMERULAR FILTRATION RATE > 60 ML/MIN (60-); GLUCOSE 94 mg/dL (74-118); POTASSIUM 3.7 mmol/L (3.5-5.1); SODIUM 135 mmol/L (136-145)
--- NOTE | 2019-05-03 07:00 | NUR ---
RECEIVED BEDSIDE SHIFT REPORT FROM NIGHT RN CLAUDIA. PT DENIES NEEDS AT THIS TIME.
[2019-05-03 07:30] VITALS: BP 111/71
[2019-05-03] MEDS: FAMOTIDINE 20 MG/2 ML VIAL IV SCH ×2 (08:35→17:18)
[2019-05-03 09:00] VITALS: BP 111/71
[2019-05-03 11:11] VITALS: BP 120/82
[2019-05-03 15:17] VITALS: BP 121/78
--- NOTE | 2019-05-03 19:15 | NUR ---
Patient visited in room during nursing rounds. Patient alert and oriented x3. Pt states she feels very hungry and quite weak. Pt aware she is currently on Full Liquid diet per Dr. Baig order. Nurse (Dameon) informed pt will call Dr. Baig for possible upgrade on diet type. Pt wishes to eat mashed potatoes tonight. S/P Lap Cholecystectomy on 05/02 with 4 trocar sites on abdomen sealed with dermabond. On IVF (NS at 125ml/hr). Call suggs within reach.
[2019-05-03 19:50] VITALS: BP 119/83
--- NOTE | 2019-05-03 19:57 | NUR ---
Spoke with Dr. Baig to inform pt wishes to eat mashed potatoes tonight. aware and consented to change diet from Full Liquid to GI soft diet.
--- NOTE | 2019-05-03 20:30 | NUR ---
Pt ate mashed potatoes with no discomfort or nausea.
[2019-05-03] MEDS: CEFTRIAXONE SOD 1 GM/NS 50 ML 50 ML IV SCH (20:38)
[2019-05-04 00:44] VITALS: BP 110/74
--- NOTE | 2019-05-04 00:55 | NUR ---
Dr. Diane Arambula came and visited pt in room during rounds. MD aware of pt condition. No further orders given at this time.
[2019-05-04] MEDS: MORPHINE SULFATE INJ 4 MG/ML INJ 1ML IV PRN (01:15)
[2019-05-04] MEDS: ONDANSETRON HCL INJ 2MG/ML 2ML 2 MG/ML VIAL IV PRN (01:15)
[2019-05-04] MEDS: METRONIDAZOLE 500MG/NS 100ML 100 ML IV SCH ×3 (04:00→16:47)
[2019-05-04 05:44] VITALS: BP 113/76
[2019-05-04] MEDS: SODIUM CHLORIDE 0.9% 1000ML 1,000 ML IV SCH ×2 (06:25→12:05)
--- NOTE | 2019-05-04 07:09 | NUR ---
Received bedside report from night nurse. Patient resting in bed, no signs of distress at this time. All safety measures in place. Will continue to monitor.
[2019-05-04 07:31] VITALS: BP 119/85
[2019-05-04] MEDS: FAMOTIDINE 20 MG/2 ML VIAL IV SCH ×2 (09:19→16:47)
[2019-05-04 09:32] VITALS: BP 119/85
[2019-05-04 11:07] VITALS: BP 133/84
[2019-05-04] MEDS: ACETAMINOPHEN 325 MG TAB PO PRN ×2 (11:11→17:31)
[2019-05-04 15:21] VITALS: BP 128/92
--- NOTE | 2019-05-04 16:58 | NUR ---
Per Dr. Baig patient okay to DC home.
--- NOTE | 2019-05-04 18:21 | NUR ---
Patient discharged home via private auto. In stable condition, no c/o of pain or signs of distress. All belongings with patient and family member.
--- NOTE | 2019-05-08 07:23 | Discharge Summary ---
ADMISSION DIAGNOSES: Severe upper abdominal pain with intractable nausea, vomiting, mild descending colitis, gallbladder dyskinesia, history of alcohol use, hematemesis, anemia, asymptomatic bradycardia. DISCHARGE DIAGNOSES: Severe upper abdominal pain with intractable nausea, vomiting, mild descending colitis, gallbladder dyskinesia, history of alcohol use, hematemesis, anemia, asymptomatic bradycardia, gastritis, duodenitis, distal esophagitis. HISTORY: Gastritis. SURGICAL HISTORY: None. FAMILY HISTORY: The patient's mom has diabetes. SOCIAL HISTORY: The patient admits to drinking about four beers a week and uses minimal tobacco. HOSPITAL COURSE: A 23-year-old female, admitted with upper abdominal pain, nausea, vomiting, hematemesis, and trouble swallowing, which began this morning. She had previous upper abdominal pain, which comes and goes. Last bowel movement today. Last menstrual period four days ago. Denies recent travel or contact with sick individual. She was admitted today, but had recently been discharged from [facility] but still had abdominal pain. So, she came back to the ER. On admission, ultrasound of the gallbladder showed no abnormality. CT of the abdomen and pelvis showed findings consistent with mild infectious or inflammatory colitis. No fluid collection. She then had a HIDA scan, which showed an EF of the gallbladder undefined as there is no emptying. The absence of the contractile response supports the diagnosis of chronic cholecystitis/gallbladder dyskinesia. The patient then had an EGD, which showed esophagitis, gastritis, duodenitis, which did not explain the severity or duration of the patient's abdominal pain. So, Surgery was consulted and the patient had a laparoscopic cholecystectomy on 05/02/[address] Soto. After the surgery, diet was advanced as tolerated and pain was much improved. The patient will discharge home with Tylenol for pain, Flagyl and Omnicef for the remaining doses of antibiotics for the colitis. She will follow up with primary care in 1 to 2 weeks. The patient understands discharge instructions and agrees to plan. Vital signs stable. The patient is afebrile. Dictated by Milana Campos NP MD KRISTEL Hernandez/MODL /[id number]
== END 2019-05-04 18:08 | disposition home or self-care (01) | DRG 418 ==
LOC: ER 16:21 → ERHOLD 20:20 → MED/SURG3 21:12 → OBSVTOIN 04-30 10:00
PROVIDERS: ADMIT Internal Medicine; ATTEND Internal Medicine
PROC: 0FT44ZZ Resection of Gallbladder, Percutaneous Endoscopic Approach (ICD-10-PCS; principal; 2019-04-30)
PROC: 0DB78ZX Excision of Stomach, Pylorus, Via Natural or Artificial Opening Endoscopic, Diagnostic (ICD-10-PCS; 2019-05-01)
DX: K82.8 Other specified diseases of gallbladder (principal); K92.0 Hematemesis; K81.1 Chronic cholecystitis; K29.70 Gastritis, unspecified, without bleeding; E86.0 Dehydration; K52.9 Noninfective gastroenteritis and colitis, unspecified; I48.91 Unspecified atrial fibrillation; F10.20 Alcohol dependence, uncomplicated; D64.9 Anemia, unspecified; R00.1 Bradycardia, unspecified; E87.6 Hypokalemia; K20.9 Esophagitis, unspecified
CPT/HCPCS: 36415; 43239; 74177; 76705; 78227; 80048; 80053; 81001; 82150; 83605; 83690; 83735; 84100; 84132; 84702; 85025; 88304; 88305; 88312; 99284; A9537; G0378; J0690; J0696; J1100; J1885; J2001; J2250; J2270; J2405; J3010; J3480; J7030; Q9967

== ENCOUNTER 2019-07-28 11:08 | Emergency (ER) | payer OTHER ==
[~2019-07-28] VITALS: Ht 177.8 cm; Wt 79.4 kg
[~2019-07-28 11:08] MED LIST: CEFDINIR300 MG PO; METRONIDAZOLE500 MG PO; TYLENOL WITH C1 EACH PO
[2019-07-28] MEDS ORDERED: SODIUM CHLORIDE 0.9% 1000ML 1,000 ML IV STA (11:20)
[2019-07-28 11:28] LABS: BASOPHILS % 0.4 % (0.0-1.0); EOSINOPHILS % 0.1 % (0.0-6.0); HEMATOCRIT 39.6 % (34.2-44.1); HEMOGLOBIN 13.2 g/dL (12.0-16.0); LYMPHOCYTES # (AUTO) 1.4 (1.0-3.2); LYMPHOCYTES % 13.8 % (18.0-39.1); MEAN CORPUSCULAR HEMOGLOBIN 30.8 pg (28-32); MEAN CORPUSCULAR HGB CONC 33.3 g/dL (31-35); MEAN CORPUSCULAR VOLUME 92.5 fL (81-99); MONOCYTES # (AUTO) 0.5 (0.2-0.8); MONOCYTES % 4.6 % (4.4-11.3); NEUTROPHILS # (AUTO) 8.1 (2.1-6.9); NEUTROPHILS % 80.5 % (38.7-80.0); PLATELET COUNT 213 x10e3/uL (140-360); RED BLOOD COUNT 4.28 x10e6/uL (3.6-5.1); RED CELL DISTRIBUTION WIDTH 11.8 % (11.7-14.4)
[2019-07-28] MEDS ORDERED: PROMETHAZINE 25MG/ NS 50ML (IV) IV NR (11:30)
[2019-07-28] MEDS ORDERED: KETOROLAC TROMETHAMINE 30 MG/ML VIAL IV NR (11:30)
[2019-07-28] MEDS ORDERED: FAMOTIDINE 20 MG/2 ML VIAL IV NR (11:30)
[2019-07-28] MEDS ORDERED: IOPAMIDOL 370 MG/ML 200 ML INFUS..BTL INJ ONE (11:39)
[2019-07-28] MEDS ORDERED: SODIUM CHLORIDE 0.9% 50ML 50 ML ONE (11:39)
--- NOTE | 2019-07-28 11:40 | NUR ---
MEDS GIVEN AND PT HAS TOLERATED WELL SO FAR
--- NOTE | 2019-07-28 12:04 | NUR ---
PT STATING PAIN, "A LITTLE BIT BETTER." PLACED ON BEDPAN FOR URINE WITH NO RESULTS. PT INSISTED ON WALKING TO THE BR,BUT EXPLAINED TO HER THAT I DID NOT WANT TO RISK HER FALLING P GETTING PAIN MEDICATION.
[2019-07-28 12:41] LABS: ALANINE AMINOTRANSFERASE 21 IU/L (0-55); ALBUMIN 4.2 g/dL (3.5-5.0); ALBUMIN/GLOBULIN RATIO 1.2 (0.8-2.0); ALKALINE PHOSPHATASE 64 IU/L (40-150); AMYLASE 74 U/L (25-125); ANION GAP 15.9 mmol/L (8-16); BLOOD UREA NITROGEN 10 mg/dL (7-26); BUN/CREATININE RATIO 11 (6-25); CALCIUM 9.3 mg/dL (8.4-10.2); CARBON DIOXIDE 20 mmol/L (22-29); CHLORIDE 109 mmol/L (98-107); CREATININE, SERUM 0.94 mg/dL (0.57-1.11); EST GLOMERULAR FILTRATION RATE > 60 ML/MIN (60-); GLUCOSE 161 mg/dL (74-118); LIPASE 29 U/L (8-78); POTASSIUM 3.9 mmol/L (3.5-5.1); SODIUM 141 mmol/L (136-145)
--- NOTE | 2019-07-28 12:41 | NUR ---
PT STILL IN PAIN. DR. SALCEDO/Kristina PRESTON. NOTIFIED
--- NOTE | 2019-07-28 12:53 | NUR ---
Karen PRESTON. IN TO SEE THE PT AND HAS ORDERED MORE PAIN MEDICATION
[2019-07-28] MEDS ORDERED: MORPHINE SULFATE 2 MG/ML SYR 1ML IV NR (13:00)
[2019-07-28 13:10] LABS: BILIRUBIN,URINE NEGATIVE (NEGATIVE); CLARITY,URINE CLEAR (CLEAR); COLOR,URINE YELLOW (YELLOW); KETONES,URINE TRACE (NEGATIVE); LEUKOCYTE ESTERASE ,URINE NEGATIVE (NEGATIVE); NITRITE,URINE NEGATIVE (NEGATIVE); PROTEIN,URINE DIPSTICK TRACE (NEGATIVE); URINE UROBILINOGEN 0.2 mg/dL (0.2 - 1)
[2019-07-28 13:12] LABS: RBC,URINE 0-5 /HPF (0-5); WBC,URINE (MAN) 0-5 /HPF (0-5)
[2019-07-28 13:13] LABS: BACTERIA,URINE RARE /HPF; EPITHELIAL CELLS,URINE FEW /LPF
--- NOTE | 2019-07-28 13:42 | Diagnostic Imaging Report ---
CT Abdomen And Pelvis with Intravenous Contrast INDICATION: Nausea, vomiting, hyperventilation ^look for appy, diverticulitis, pancreatitis, hernia, rup ^[id number] ^1301 ^Y TECHNIQUE: Thin collimation axial images obtained from the diaphragm to the level of the pubic symphysis following the uneventful administration of 100 cc of low osmolar, nonionic intravenous contrast. Dose reduction techniques used: Automated exposure control, adjustment of the mAs and/or kVp according to patient size, standardized low-dose protocol, and/or iterative reconstruction technique. RADIATION DOSE: Total DLP: 445.16 mGy*cm Estimated effective dose: (DLP x 0.015 x size factor) mSv CTDIvol has been reviewed. It is below the limits set by the Radiation Protocol Committee (RPC). COMPARISON: CT abdomen/pelvis 04/28/2019. ABDOMEN FINDINGS: Images are mildly motion degraded. Lung Bases: Minimal dependent atelectasis. Visualized portion of the mediastinum is normal. Liver: Normal attenuation. No evidence for mass. Gallbladder: Absent. No biliary ductal dilatation. Pancreas: Normal attenuation without mass or ductal dilatation. Spleen: Normal in size. No evidence of mass.. Adrenal Glands: No evidence for mass. Kidneys: Right: Normal enhancement. No soft tissue mass. No hydronephrosis. Left: Normal enhancement. No soft tissue mass. No hydronephrosis. Lymph Nodes: No enlarged abdominal or periaortic lymph nodes. Aorta: Normal in diameter PELVIS FINDINGS: Bowel: Stomach: Normal. Small Bowel: Normal in caliber with normal wall thickness. Large Bowel: Small to moderate amount of formed stool in the right colon without associated inflammation. Small to moderate amount of formed stool in the rectum without associated inflammation. The intervening colon is collapsed. No evidence of diverticulosis or pericolonic inflammation. Appendix: Normal appendix. Bladder: Under distended. The uterus is present and normal in morphology. No adnexal mass Peritoneum/retroperitoneum: No free fluid or fluid collection.. Bones: Unremarkable for age. IMPRESSION: 1. Small to moderate burden of stool in the right colon and rectum without bowel obstruction or inflammation. Normal appendix. 2. No other CT abnormalities to explain symptoms. Signed by: Dr. Xochilt Vidal MD on 07/28/2019 1:38 PM
[2019-07-28 14:12] VITALS: BP 120/66
[2019-07-28] MEDS ORDERED: ONDANSETRON HCL INJ 2MG/ML 2ML 2 MG/ML VIAL IV ONE (14:45)
[2019-07-28] MEDS ORDERED: KETOROLAC TROMETHAMINE 30 MG/ML VIAL IV ONE (14:45)
--- NOTE | 2019-07-28 15:15 | NUR ---
PT SIGNED DC INSTRUCTIONS AND WAITING FOR A RIDE. SISTER IN ROOM ALSO
== END 2019-07-28 15:04 | disposition home or self-care (01) ==
LOC: ER 11:14
DX: R10.11 Right upper quadrant pain (principal); R10.13 Epigastric pain; R11.2 Nausea with vomiting, unspecified; K59.00 Constipation, unspecified; F41.9 Anxiety disorder, unspecified; F17.210 Nicotine dependence, cigarettes, uncomplicated
CPT/HCPCS: 36415; 74177; 80053; 81001; 82150; 83690; 84702; 85025; 99284; J1885; J2270; J2405; J2550; J7030; Q9967

== ENCOUNTER → 2020-10-07 | Day surgery (SDC) | payer BC ==
[~2020-10-07] MED LIST changes: +OMEPRAZOLE40 MG PO
[2020-10-07 08:50] VITALS: BP 105/73
== END | disposition home or self-care (01) ==
LOC: OR 06:02
PROVIDERS: ATTEND Internal Medicine Gastroenterology
DX: K29.70 Gastritis, unspecified, without bleeding (principal); K21.9 Gastro-esophageal reflux disease without esophagitis; K20.90 Esophagitis, unspecified without bleeding; J45.909 Unspecified asthma, uncomplicated; Z72.0 Tobacco use; Z01.812 Encounter for preprocedural laboratory examination; Z20.822 Contact with and (suspected) exposure to COVID-19; Z80.0 Family history of malignant neoplasm of digestive organs
CPT/HCPCS: 43239; 81025; U0002

== ENCOUNTER 2021-03-27 18:26 | Emergency (ER) | payer BC ==
[~2021-03-27] VITALS: Ht 177.8 cm; Wt 79.4 kg
[2021-03-27] MEDS ORDERED: ONDANSETRON HCL INJ 2MG/ML 2ML 2 MG/ML VIAL IV STA (18:29)
[2021-03-27] MEDS ORDERED: SODIUM CHLORIDE 0.9% 1000ML 1,000 ML IV ONE (18:30)
[2021-03-27] MEDS ORDERED: DICYCLOMINE HCL 20 MG/2 ML VIAL IM ONE (18:30)
[2021-03-27] MEDS ORDERED: ONDANSETRON HCL INJ 2MG/ML 2ML 2 MG/ML VIAL ONE (18:45)
[2021-03-27 19:05] LABS: BASOPHILS % 0.5 % (0.0-1.0); EOSINOPHILS # (AUTO) 0.1 (0.0-0.4); EOSINOPHILS % 0.9 % (0.0-6.0); HEMATOCRIT 39.1 % (34.2-44.1); HEMOGLOBIN 12.8 g/dL (12.0-16.0); LYMPHOCYTES # (AUTO) 2.9 (1.0-3.2); LYMPHOCYTES % 42.8 % (18.0-39.1); MEAN CORPUSCULAR HEMOGLOBIN 30.5 pg (28-32); MEAN CORPUSCULAR HGB CONC 32.7 g/dL (31-35); MEAN CORPUSCULAR VOLUME 93.1 fL (81-99); MONOCYTES # (AUTO) 0.5 (0.2-0.8); MONOCYTES % 7.5 % (4.4-11.3); NEUTROPHILS # (AUTO) 3.2 (2.1-6.9); PLATELET COUNT 198 x10e3/uL (140-360); RED CELL DISTRIBUTION WIDTH 11.7 % (11.7-14.4)
[2021-03-27 19:28] LABS: AMYLASE 67 U/L (25-125); LIPASE 25 U/L (8-78)
[2021-03-27 19:30] LABS: ALBUMIN 4.4 g/dL (3.5-5.0); ALBUMIN/GLOBULIN RATIO 1.5 (0.8-2.0); ANION GAP 14.8 mmol/L (8-16); CALCIUM 9.2 mg/dL (8.4-10.2); CREATININE, SERUM 0.84 mg/dL (0.57-1.11); POTASSIUM 3.8 mmol/L (3.5-5.1)
[2021-03-27 20:33] LABS: CLARITY,URINE CLEAR (CLEAR); COLOR,URINE YELLOW (YELLOW)
[2021-03-27 20:34] LABS: AMPHETAMINES SCREEN,URINE NEGATIVE (NEGATIVE); BENZODIAZEPINES SCREEN,URINE NEGATIVE (NEGATIVE); KETONES,URINE 2+ (NEGATIVE); LEUKOCYTE ESTERASE ,URINE NEGATIVE (NEGATIVE); NITRITE,URINE NEGATIVE (NEGATIVE); PHENCYCLIDINE SCREEN,URINE NEGATIVE (NEGATIVE); PROTEIN,URINE DIPSTICK 1+ (NEGATIVE); URINE UROBILINOGEN 0.2 mg/dL (0.2 - 1)
[2021-03-27 20:46] LABS: BACTERIA,URINE MODERATE /HPF; EPITHELIAL CELLS,URINE FEW /LPF; MUCUS,URINE MODERATE (RARE)
[2021-03-27] MEDS ORDERED: KETOROLAC TROMETHAMINE 30 MG/ML VIAL IV STA (21:01)
[2021-03-27] MEDS ORDERED: METOCLOPRAMIDE HCL 10 MG/2ML VIAL IV ONE (21:15)
[2021-03-27] MEDS ORDERED: SODIUM CHLORIDE 0.9% 50ML 50 ML ONE ×2 (21:30→22:59)
[2021-03-27] MEDS ORDERED: DIPHENHYDRAMINE HCL INJ 50 MG/ML VIAL IV ONE (21:45)
[2021-03-27] MEDS ORDERED: CEFTRIAXONE 1 GM in SODIUM CHLORIDE 0.9% 50ML 50 ML IV ONE (21:45)
[2021-03-27] MEDS ORDERED: DIPHENHYDRAMINE HCL INJ 50 MG/ML VIAL ONE (21:46)
[2021-03-27] MEDS ORDERED: MORPHINE SULFATE INJ 2 MG/ML SYR IV STA (22:07)
[2021-03-27] MEDS ORDERED: PROMETHAZINE 25MG/ NS 50ML (IV) IV ONE (22:15)
[2021-03-27] MEDS ORDERED: IOPAMIDOL 370 MG/ML 200 ML INFUS..BTL INJ ONE (22:59)
== END 2021-03-27 23:00 | disposition home or self-care (01) ==
LOC: ER 18:56
DX: K52.9 Noninfective gastroenteritis and colitis, unspecified (principal); R11.10 Vomiting, unspecified; N39.0 Urinary tract infection, site not specified
CPT/HCPCS: 36415; 74177; 80053; 80307; 81001; 81025; 82150; 83690; 85025; C9113; J0500; J1200; J1885; J2270; J2405; J2550; J2765; J7030; Q9967

== ENCOUNTER 2021-07-19 04:10 | Emergency (ER) | payer BC ==
[~2021-07-19] VITALS: Ht 177.8 cm; Wt 81.6 kg
[2021-07-19] MEDS ORDERED: ONDANSETRON HCL INJ 2MG/ML 2ML 2 MG/ML VIAL IV STA (04:14)
[2021-07-19] MEDS ORDERED: SODIUM CHLORIDE 0.9% 1000ML 1,000 ML IV ONE (04:15)
[2021-07-19] MEDS ORDERED: PROMETHAZINE HCL (IM) 25 MG/ML VIAL IM ONE ×2 (04:30→04:37)
[2021-07-19 04:31] LABS: BASOPHILS % 0.4 % (0.0-1.0); EOSINOPHILS % 0.3 % (0.0-6.0); HEMATOCRIT 38.1 % (34.2-44.1); HEMOGLOBIN 12.3 g/dL (12.0-16.0); LYMPHOCYTES # (AUTO) 1.9 (1.0-3.2); LYMPHOCYTES % 19.1 % (18.0-39.1); MEAN CORPUSCULAR HEMOGLOBIN 30.4 pg (28-32); MEAN CORPUSCULAR HGB CONC 32.3 g/dL (31-35); MEAN CORPUSCULAR VOLUME 94.3 fL (81-99); MONOCYTES # (AUTO) 0.6 (0.2-0.8); MONOCYTES % 6.4 % (4.4-11.3); NEUTROPHILS # (AUTO) 7.3 (2.1-6.9); NEUTROPHILS % 73.5 % (38.7-80.0); PLATELET COUNT 215 x10e3/uL (140-360); RED BLOOD COUNT 4.04 x10e6/uL (3.6-5.1); RED CELL DISTRIBUTION WIDTH 11.6 % (11.7-14.4)
[2021-07-19] MEDS ORDERED: DIPHENHYDRAMINE HCL INJ 50 MG/ML VIAL IV ONE (04:45)
[2021-07-19 04:46] LABS: ALBUMIN 4.4 g/dL (3.5-5.0); ALBUMIN/GLOBULIN RATIO 1.5 (0.8-2.0); ANION GAP 13.6 mmol/L (8-16); CALCIUM 9.6 mg/dL (8.4-10.2); CREATININE, SERUM 0.91 mg/dL (0.57-1.11); POTASSIUM 3.6 mmol/L (3.5-5.1)
[2021-07-19] MEDS ORDERED: DIPHENHYDRAMINE HCL INJ 50 MG/ML VIAL ONE (04:46)
[2021-07-19 04:47] LABS: AMYLASE 61 U/L (25-125); LIPASE 22 U/L (8-78)
[2021-07-19] MEDS ORDERED: HALOPERIDOL LACTATE 5 MG/ML VIAL IV ONE ×2 (05:30→06:00)
[2021-07-19] MEDS ORDERED: HALOPERIDOL1 MG PO (06:58)
== END 2021-07-19 08:48 | disposition home or self-care (01) ==
LOC: ER 04:13
DX: R10.10 Upper abdominal pain, unspecified (principal); R11.2 Nausea with vomiting, unspecified; K21.9 Gastro-esophageal reflux disease without esophagitis; F41.9 Anxiety disorder, unspecified; Z87.19 Personal history of other diseases of the digestive system
CPT/HCPCS: 36415; 80053; 82150; 83690; 84702; 85025; 99284; C9113; J1200; J1630; J2405; J2550; J7030

== ENCOUNTER 2021-12-13 14:58 | Emergency (ER) | payer BC ==
[~2021-12-13] VITALS: Ht 177.8 cm; Wt 72.1 kg
[~2021-12-13 14:58] MED LIST changes: +HALOPERIDOL1 MG PO
[2021-12-13] MEDS ORDERED: LIDOCAINE HCL 1% LOCAL INJ 20 ML VIAL INJ ONE (16:00)
[2021-12-13] MEDS ORDERED: CLINDAMYCIN HC150 MG PO (16:52)
== END 2021-12-13 17:00 | disposition home or self-care (01) ==
LOC: FSED 15:57
DX: L05.01 Pilonidal cyst with abscess (principal); K21.9 Gastro-esophageal reflux disease without esophagitis; F41.9 Anxiety disorder, unspecified; Z88.8 Allergy status to other drugs, medicaments and biological substances
CPT/HCPCS: 10080; 87071; 87205; 99283

== ENCOUNTER 2024-02-26 06:17 | Emergency (ER) | payer BC ==
[~2024-02-26] VITALS: Ht 177.8 cm; Wt 91.2 kg
[~2024-02-26 06:17] MED LIST changes: +CLINDAMYCIN HC150 MG PO
[2024-02-26 06:35] VITALS: PULSE 79; RESP 18; TEMP 98.2
[2024-02-26] MEDS ORDERED: AMOX TR-K CLV1 EAC2 PO (06:50)
[2024-02-26] MEDS ORDERED: DIPHENHYDRAMINE25 M2 PO (06:50)
[2024-02-26] MEDS ORDERED: IBUPROFEN200 MG PO (06:50)
[2024-02-26] MEDS ORDERED: TYLENOL325 MG PO (06:50)
[2024-02-26] MEDS ORDERED: LIDOCAINE HCL 1% LOCAL INJ 20 ML VIAL ONE (07:01)
[2024-02-26] MEDS: CEFTRIAXONE 1 GM VIAL IM ONE (07:05)
[2024-02-26] MEDS: ACETAMINOPHEN 325 MG TAB PO ONE (07:06)
[2024-02-26 07:20] VITALS: BP 142/84; PULSE 79; RESP 18; TEMP 98.2; O2SAT 100
== END 2024-02-26 07:20 | disposition home or self-care (01) ==
LOC: FSED 06:21
DX: K01.1 Impacted teeth (principal); K02.9 Dental caries, unspecified; K21.9 Gastro-esophageal reflux disease without esophagitis; Z88.8 Allergy status to other drugs, medicaments and biological substances; Z79.899 Other long term (current) drug therapy
CPT/HCPCS: 96372; 99282; J0696; J2001